=== PATIENT | female | born 1945 | race Caucasian/White ===

== ENCOUNTER 2017-06-29 03:52 | Inpatient (IN) | payer MEDICARE, BC ==
[~2017-06-29] VITALS: Ht 154.9 cm; Wt 126.3 kg
--- NOTE | ~2017-06-29 | HP ---
ADMIT: 06/29/2017 RM/LOC: 532 [facility] MR#: [id number] [facility]#: [id number] [address] [facility] [address] [place], [place] [id number] DAJUAN SILVERMAN [address] [place] [address] History and Physical SEX: F AGE: 71 : 1945 DATE OF SERVICE: CHIEF COMPLAINT: Fall with severe left knee pain and inability to ambulate. HISTORY OF PRESENT ILLNESS: Carlene is a 71-year-old, white female with right- sided hemiplegia related to a left-sided meningioma resection many years ago. She currently lives alone at home with her . Kimberly became increasingly weak over the last 2 days. Episodes where she would be unable to navigate because of this profound weakness. Her legs would just give out. She did not require any shortness of breath or palpitations, but she is not really sure she would notice. She fell once yesterday and then her leg gave out. Again on the morning of admission, she fell again. Her was not able to help her up as she is obese. They summoned EMS and she was brought into the emergency room. In the emergency room, she was noted to have a slightly elevated blood pressure which is not unusual. Laboratory studies showed no significant anemia. She is admitted at this time for pain management, observation for reasons why she became profoundly weak including arrhythmia among other things. PAST MEDICAL HISTORY: 1. Diabetes without complication since 1991, on insulin. 2. Acute gastritis without hemorrhage on EGD 09/2008. 3. Anemia of unknown etiology. 4. Status post appendectomy. 5. Atopic dermatitis. 6. Lumbosacral back pain. 7. Bilateral edema of the lower extremity. 8. Cervical disc disease-CT scan of C-spine 03/30/08 with disc at C4-5, referred to Dr. Rene for epidural. 9. Closed fracture of the proximal end of the right humerus which was nonsurgical. 10.Colon polyps-colonoscopy 10/05/08 with tubulovillous adenoma. 11.Mcgrath catheter. 12.Health care maintenance. 13.Pap 07/10/2011. 14.Mammogram 02/14/2015. 15.Abdominal ultrasound 06/1995. 16.Ultrasound of the pelvis 08/17/2012. 17.CT abdomen 09/1995. 18.Holter 11/2002. 19.DEXA 08/2004. 20.MRI cervical spine 09/2004 with mild disc C6-7 and C7. 21.MRI lumbosacral spine 09/2004 with lateral protrusion at L5-S1 and 5th nerve irritation with bulge of L4-5. 22.MRI right hip 09/2004. 23.MRI right shoulder 08/24 with arthrogram. 24.Ultrasound of the carotid 01/25 with 40-59% on the right. 25.Echo 01/26/08 with EF 65% to 70%, moderate LVE of 4.4 cm, diastolic dysfunction, and trace MR. ADMIT: 06/29/2017 RM/LOC: 532 [facility] MR#: [id number] [address] [address] [place] [address] History and Physical SEX: F AGE: 71 : 1945 26.Cardiolite 03/11/2008. 27.KALPANA 02/2008 with tachycardia. 28.Colonoscopy 10/05/2008. 29.EGD 10/05/2008. 30.CT head 07/31/2016. 31.CT pelvis 02/25/2014. 32.Exam 09/19/2015. 33.Hepatomegaly on ultrasound of the abdomen 06/[address] scan 09/1995. 34.High risk medications-Actos, Zestril, Lasix, Relafen, and Lipitor. 35.Hypertension 05/1999. 36.Meningioma-CT of the head 09/2004 was negative. 37.MRI 09/2004 with left posterior frontal parasagittal meningioma measuring 2.6 x 4.1 x 4 cm with vasogenic edema status post resection and resulting right-sided weakness. 38.Recurrent tumor 12/1930 status post Gamma knife complicated by focal motor seizures. 39.CT head 03/26 in [place]. 40.CT head 02/09/2012 with left parafalcine mass without midline shift (4.5 x 2.3 x 1.9 cm) with no old scans here to compare, sent to [facility] compared to 02/07/2011 study and felt that it was bigger and left hemispheric edema, Dr. Mendoza reviewed and felt the same. So repeat CT on 01/30. 41.CT of head 02/19/2013 with left superior frontoparietal lobe mass unchanged, but new area of enhancement along the periphery of the tumor which maybe a progression with stable vasogenic edema. 42.CT head 06/07/2014 with midline mass minimally decreased in size and new cystic area along the anterior midline of the left ventricle measuring 2.[address] head 07/31/2015 with increasing size of both cystic lesion, now measuring 3.9 x 2.4 cm and increased enhancement along the posterior superior aspect of the mass with some moderate cytogenic edema, followed by Dr. Mendoza. 44.Hyperlipidemia with increased cholesterol/increased LDL. 45.Osteoporosis on x-ray 08/2008. 46.Right footdrop due to meningioma resection. 47.Rotator cuff tendinitis. 48.Thrush. 49.Vitamin D deficiency. MEDICATIONS: 1. Tylenol p.r.n. 2. Calcium with vitamin D. 3. Vitamin D3 2000 international units daily. 4. Fiber-Tabs 100 mg daily p.r.n. for . 5. Flonase 1 to 2 sprays each nostril daily. 6. Lasix 40 mg one or two daily. 7. Hydrocodone 10/325, one every 4 hours as needed for pain. 8. Novolin NPH 55 units twice daily. ADMIT: 06/29/2017 RM/LOC: 532 [facility] MR#: [id number] [address] [place] [address] [place] [phone] DAJUAN SILVERMAN [address] [place] [address] History and Physical SEX: F AGE: 71 : 1945 9. Insulin R 40 units b.i.d. 10.Prinivil 10 mg daily. 11.Mevacor 10 mg daily. 12.Nystatin p.r.n. 13.Tizanidine 4 mg b.i.d. and every 6 hours as needed. 14.Zinc 50 mg daily. ALLERGIES: FLEXERIL, DECREASES BLOOD PRESSURE BUT NOT REALLY HYPOTENSIVE. SOCIAL HISTORY: . Former smoker of one pack a day for 10 years. Never snuff or chew. No alcohol. Three children. Retired. FAMILY HISTORY: Mother with diabetes and kidney disease. Father with heart disease, diabetes, and hypertension. Three daughters, all were fine. Paternal uncle had diabetes. REVIEW OF SYSTEMS: Knee pain. Does not recall any syncope. Is due to have a CT scan performed again here shortly. PHYSICAL EXAMINATION: VITAL SIGNS: Blood pressure 155/76, pulse 127, respirations 22, temperature 100.2. GENERAL: This is a well-developed, well-nourished, white female, lying in bed, in moderate distress. Any movement is uncomfortable. SKIN: Warm and dry. HEENT: Normocephalic, atraumatic. Anicteric. NECK: Supple. LUNGS: Diminished, but clear. CARDIOVASCULAR: Regular without murmur or gallop. Distant. ABDOMEN: Obese. EXTREMITIES: No obvious effusions noted but difficult with her knees. IMPRESSION: 1. New left knee pain. 2. Profound weakness-rule out rhythm issues. ADMIT: 06/29/2017 RM/LOC: 532 [facility] MR#: [id number] [address] [facility] [address] [place] [id number] DAJUAN SILVERMAN [address] [place] [address] History and Physical SEX: F AGE: 71 : 1945 3. Diabetes. 4. Hypertension. 5. Increased lactic acid. DISCUSSION: She is pretty miserable with pain. We will have Orthopedics come by and see that she does not have an occult fracture. I did go ahead and get a CAT scan of her left knee and it was fine. Once they decide, we might need to look into some modifications in the home , so that should she need a Jossie or some kind of a lift, there will be an option. PLAN: See chart. hSey Young MD/ ashley JOB #: [id number] CC: Shey Young, Attending Physician Shey Young, Family Physician
--- NOTE | ~2017-06-29 | CO ---
ADMIT: 06/29/2017 RM/LOC: 532 [facility] MR#: [id number] [facility]#: [id number] [address] [address] DAJUAN SILVERMAN [address] [place] [address] Consultation SEX: F AGE: 71 : 1945 DATE OF CONSULTATION: 06/30/2017 ATTENDING PHYSICIAN: Shey Young CONSULTING PHYSICIAN: Gary Victoria MD REASON FOR CONSULTATION: Bilateral knee pain. HISTORY OF PRESENT ILLNESS: The patient is a 71-year-old female with right- sided hemiplegia secondary to a brain tumor resection. She was admitted to the hospital. I was asked to see her for some bilateral knee pain, she also has some back pain. She has had several falls recently landing on her left knee. We did get x-rays and CT scan of the left knee. No evidence of any fractures. It did show severe degenerative changes here. She also complains of some right knee pain. She has been afebrile, white count was normal. Dr. Young asked if she could have some injections in her knees to try to help with her pain here. PAST MEDICAL HISTORY: As per Dr. Alex Ortega and P. MEDICATIONS: As per Dr. Alex Ortega and P. ALLERGIES: PER DR. ALEX Ortega AND Hernan. SOCIAL HISTORY: As per Dr. Alex Ortega and P. PHYSICAL EXAMINATION: Examination of bilateral knees, the patient is morbidly obese. Difficult to obtain as much in way of an effusion. She has knee pain with some crepitus and knee range of motion. She is kind of tender globally about the knees, left greater than right. No finding of gross ligamentous instability in either knee. Appears to be otherwise distally neurovascularly intact except to have some right-sided hemiplegia here. Once again, x-rays and CT scan of the left knee show no acute fracture, dislocation. Severe degenerative changes here. She also has similar symptoms in the right knee but not as bad. ASSESSMENT: Bilateral knee degenerative joint disease. ADMIT: 06/29/2017 RM/LOC: [address] [facility] MR#: [id number] [address] [address] [address]ERA DAJUAN L [address] [place] [address] Consultation SEX: F AGE: 71 : 1945 PLAN: At this point, we talked to her about trying injections in both of her knees, she would like to do this. After discussing the risks and benefits with her and sterile prep, we injected both of her knees with 2 mL 0.5% Marcaine plain, 2 mL of 1% lidocaine plain, and 2 mL of Celestone. The patient tolerated this well. We will have her primary care physician continue with any outpatient pain management that the patient may need at this time. She is not a great surgical candidate for a knee replacement. We will see her back in our office as needed. Thank you for the consultation. Gary Victoria MD/ ashley JOB #: [id number] CC: Shey Young, Attending Physician Shey Young, Family Physician
--- NOTE | 2017-06-29 06:44 | ER ---
ADMIT: 06/29/2017 RM/LOC: ER [facility] MR#: [id number] [address] [facility] [address] [place], [place] [address] DAJUAN SILVERMAN [address] [place] [address] Emergency Room Report SEX: F AGE: 71 : 1945 DATE: 06/29/2017 CHIEF COMPLAINT: Fall. HISTORY OF PRESENT ILLNESS: The patient is a 71-year-old disabled female from left craniotomy for recurrent meningioma leaving right-sided residual weakness. She has had 2 falls the past 24 hours and most recently tonight. Transported by [facility] paramedics with left knee pain. Does admit to diarrhea lately without fevers, chills, cough, nausea, or vomiting. PAST MEDICAL HISTORY: ILLNESSES: Hyperlipidemia; gastritis; osteoporosis; hypertension; right-sided residual weakness; seizure disorder; DJD; degenerative disk disease; atopic dermatitis; rotator cuff injury; frequent falls; type 2 diabetes, on insulin; and chronic pain. Operations: Left craniotomy from meningioma with recurrence, Gamma Knife radiation, epidural steroid injection to cervical spine, and appendectomy. ALLERGIES: NONE. MEDICATIONS: Please see nurse's MAR. SOCIAL HISTORY: Disabled. . Retired daycare worker. Nonsmoker. Nondrinker. No illicit drugs. FAMILY HISTORY: Negative per chart review. REVIEW OF SYSTEMS: A 12-point review of systems is negative for all other systems, illnesses, or operations except as outlined above. PHYSICAL EXAMINATION: VITAL SIGNS: Temperature 99.6. Weight 131 kg. Pulse 127, respirations 22, BP 155/76, and SaO2 of 97% on room air. GENERAL: Morbidly obese, nontoxic, non-diaphoretic without jaundice or icterus. HEENT: Normocephalic. No evidence of epistaxis, rhinorrhea, or otorrhea. NECK: Supple without lymphadenopathy or thyromegaly. CHEST: Clear. Breath sounds equal. HEART: Tachycardic, regular without murmur, gallop, or edema. ABDOMEN: Obese, nontender, and nondistended without mass or megaly. Bowel sounds are hypoactive. EXTREMITIES: Decreased range of motion in the left knee due to pain. No deformity noted. Brace noted on the right knee. MEDICAL DECISION MAKING: X-ray of the left knee shows severe degenerative joint disease, no evidence of fracture. Chest x-ray is negative. EKG shows sinus tachycardia with old inferior and anterior wall CA, unchanged from previous. Normal CBC. CRP 6.06. Lactic 2.5. Normal CMP except glucose 186. Urinalysis, cath specimen; 1+ blood, 1+ protein, 2 wbc's, and 9 rbc's. BN peptide 106. Troponin less than 0.015. The patient was given IV fluid bolus ADMIT: 06/29/2017 RM/LOC: [facility] MR#: [id number] [address] [place] [address] [id number] [place] [address] Emergency Room Report SEX: F AGE: 71 : 1945 of 1000 mL, Zofran 8 mg IV push and Dilaudid 1 mg IV push. Discussed findings with Dr. Vicente, who agreed and gave orders to nursing staff. DIAGNOSES: 1. Lactic acidosis. 2. Severe degenerative joint disease, left knee. 3. Right-sided residual weakness, status post craniotomy for recurrent meningioma and Gamma Knife radiation. 4. Seizure disorder due to Gamma Knife radiation and tumor recurrence. 5. Diarrhea. 6. Frequent falls. RECOMMENDATION: Admit to inpatient telemetry for Dr. Young. ADMISSION/DISCHARGE CONDITION: Stable. CODE STATUS: The patient is a full code. Eb Levi MD/ ashley BUENROSTRO: 06/29/2017 05:31:24 JOB #: [id number] CC: Eb Levi MD, Attending Physician Shey Young MD, Family Physician Shey Young MD
== END 2017-07-02 13:19 | DRG 554 ==
LOC: ER 03:52 → 5MS 05:24
PROVIDERS: ADMIT Internal Medicine
PROC: 3E0U3BZ Introduction of Anesthetic Agent into Joints, Percutaneous Approach (ICD-10-PCS; principal; 2017-06-30)
PROC: 3E0U33Z Introduction of Anti-inflammatory into Joints, Percutaneous Approach (ICD-10-PCS; principal; 2017-06-30)
DX: M17.0 Bilateral primary osteoarthritis of knee (principal); E87.2 Acidosis; G81.91 Hemiplegia, unspecified affecting right dominant side; Z68.43 Body mass index [BMI] 50.0-59.9, adult; E78.5 Hyperlipidemia, unspecified; M81.0 Age-related osteoporosis without current pathological fracture; E66.01 Morbid (severe) obesity due to excess calories; I10 Essential (primary) hypertension; G40.909 Epilepsy, unspecified, not intractable, without status epilepticus; E11.9 Type 2 diabetes mellitus without complications; M54.5 Low back pain; M50.321 Other cervical disc degeneration at C4-C5 level; E55.9 Vitamin D deficiency, unspecified; R29.6 Repeated falls; G89.29 Other chronic pain; I25.2 Old myocardial infarction; R19.7 Diarrhea, unspecified; Z79.4 Long term (current) use of insulin; Z86.011 Personal history of benign neoplasm of the brain; Z87.891 Personal history of nicotine dependence